=== PATIENT | male | born 1985 | race Caucasian/White ===

== ENCOUNTER 2024-10-15 10:08 | Day surgery (SDC) | payer BC, OTHER ==
[2024-10-02 16:25] LABS: Anion Gap 7.1 mEq/L (5.0-15.0); Potassium 4.1 mEq/L (3.5-5.1)
--- NOTE | 2024-10-07 17:01 | EKG ---
Test Date: 2024-10-02 Test Time: 15:16:49 Catering Director: BAIRON MEASUREMENT RESULTS: Intervals: Rate: 65 MA: 132 QRSD: 106 QT: 378 QTc: 393 [place]: P: 57 MA: 132 QRS: 67 T: 69 INTERPRETIVE STATEMENTS: Normal sinus rhythm Normal ECG No previous ECG available for comparison Electronically Signed On 10-07-24 16:56:06 CDT by Doe Rodriguez
[2024-10-15] MEDS: Ringers Lactate 1,000 ML IV ONE (10:35)
[2024-10-15] MEDS ORDERED: LIDOCAINE 2% MPF 5 ML VIAL ONE (11:37)
[2024-10-15] MEDS ORDERED: ONDANSETRON 4 MG/2 ML VIAL ONE (11:37)
[2024-10-15] MEDS ORDERED: propofoL 200 MG/20 ML VIAL IV ONE ×2 (11:37→12:04)
[2024-10-15] MEDS ORDERED: dexAMETHasone 10 MG/ML VIAL ONE (11:37)
[2024-10-15] MEDS ORDERED: MIDAZOLAM HCL 2 MG/2 ML INJ ONE (11:37)
[2024-10-15] MEDS ORDERED: FENTANYL CITR 100 MCG/2 ML ONE (11:37)
[2024-10-15] MEDS ORDERED: KETOROLAC 30 MG/ML INJ ONE (11:37)
[2024-10-15] MEDS: CEFAZOLIN SODIUM 2 GM/VIAL ONE (11:46)
[2024-10-15] MEDS: LIDOCAINE HCL/EPINEPHRINE 20 ML MDV ONE (12:06)
--- NOTE | 2024-10-15 12:16 | P.OP ---
Preoperative diagnosis: Posterior Neck Cyst Postoperative diagnosis: Posterior Neck Cyst Primary procedure: Excision of Posterior Neck Cyst Anesthesia: GETA + Local Estimated blood loss: <5cc Specimen: Posterior Neck Cyst ~ 2cm Findings: Posterior Neck Cyst - Sebacous Complications: None Transferred to: Recovery Room Condition: Good
--- NOTE | 2024-10-15 13:21 | OP ---
Date of Procedure: 10/15/2024 Surgeon: Bill Coleman MD, Preoperative Diagnosis: Posterior neck cyst. Postoperative Diagnosis: Posterior neck cyst. Procedure Performed: Excision of posterior neck cyst. Anesthesia: General endotracheal plus local with 1% lidocaine with epinephrine. Estimated Blood Loss: Less than 5 cc. Specimen: Posterior neck cyst approximately 2 cm in size. Findings: Posterior neck cyst, which is sebaceous in origin. Complications: None. Disposition: The patient was transferred to recovery room in good condition. Procedure In Detail: After informed consent was obtained, patient was brought to the operating room, prepped and draped in the usual sterile fashion. After adequate anesthesia was achieved, I made an elliptical incision circumferentially around the posterior neck cyst down to subcutaneous tissue usi ng a 15 blade. Ultimately, electrocautery was used to dissect out what appeared to be a sebaceous cy st that was approximately 2 cm in size and attached to the fascia overlying the muscle. This was rem courtney at this time and was sent off for pathologic examination. The area was copiously irrigated, and closed with interrupted 3-0 nylon sutures. A sterile dressing was placed over top. The patient sandrita erated the procedure well without incident or complication, transferred to PACU in good condition. All counts were correct at the end of the case. MARIAJOSE/JONATHAN Voice ID: [id number] Report ID: [id number]
[2024-10-15 13:53] VITALS: BP 121/78; O2SAT 100
[2024-10-15 13:54] VITALS: TEMP 97
== END 2024-10-15 13:45 | disposition home or self-care (01) ==
LOC: OR 10:08
PROVIDERS: ATTEND Surgery
PROC: 0JB40ZZ Excision of Right Neck Subcutaneous Tissue and Fascia, Open Approach (ICD-10-PCS; 2024-10-15)
PROC: 0JB50ZZ Excision of Left Neck Subcutaneous Tissue and Fascia, Open Approach (ICD-10-PCS; principal; 2024-10-15 12:00)
DX: L72.0 Epidermal cyst (principal)
CPT/HCPCS: 93005; 80048; 36415; 88304; 11422; J2704; J2003; J2250; J3010; J1100; J2405; J7120